=== PATIENT | female | born 1990 | race Caucasian/White ===

== ENCOUNTER 2016-02-28 15:40 | Emergency (ER) | payer OTHER ==
[2016-02-28 16:13] VITALS: RESP 18
[2016-02-28 16:26] LABS: COLOR YELLOW; LEUKOCYTE ESTERASE,URINE 3+ (NEGATIVE); NITRITE,URINE POSITIVE (NEGATIVE)
[2016-02-28 16:34] LABS: BACTERIA 1+ /hpf (NONE SEEN); RBC,URINE 15-25 /hpf (0-3); WBC,URINE 25-50 /hpf (0-3)
--- NOTE | 2016-02-28 16:56 | EDPHY ---
H & P Stated Complaint: Burning, frequent urination. Pain starting to radiate to right flank Time Seen by Provider: 02/28/16 16:12 HPI/ROS: CHIEF COMPLAINT: urinary frequency, urgency, dysuria HISTORY OF PRESENT ILLNESS: 25-year-old female presents emergency department reporting urinary frequency, urgency, dysuria and hematuria that started last night. Patient reports mild right-sided flank pain that she noticed this afternoon. She denies nausea, vomiting, no fevers. Patient reports she was treated for a urinary tract infection 4 months ago. She denies vaginal discharge. She reports there is no chance she is as she takes control regularly. She has no other complaints. REVIEW OF SYSTEMS: A comprehensive 10 point review of systems is otherwise negative aside from elements mentioned in the history of present illness. Source: Patient Exam Limitations: No limitations - Personal History LMP (Females 10-55): 8-14 Days Ago Current Tetanus/Diphtheria Vaccine: Yes Current Tetanus Diphtheria and Acellular Pertussis (TDAP): Yes - Medical/Surgical History Hx Asthma: No Hx Chronic Respiratory Disease: No Hx Diabetes: No Hx Cardiac Disease: No Hx Renal Disease: No Hx Cirrhosis: No Hx Alcoholism: No Other PMH: frequent UTI's - Social History Smoking Status: Never smoked - Physical Exam Exam: Physical Exam Gen: Alert and Oriented, NAD HEENT: PERRL, moist mucous membranes NECK: no meningismus CV: regular rate and regular rhythm PULM: CTAB, no wheezes ABDOMEN: soft, mild suprapubic tenderness to palpation, BS present BACK: No CVA tenderness NEURO: Neurologically grossly intact EXTREMITIES: normal appearing SKIN: no rash or break in skin on exposed skin PSYCH: answers questions appropriately. Constitutional: Initial Vital Signs Temperature (C) 36.9 C 02/28/16 16:02 Heart Rate 78 02/28/16 16:02 Respiratory Rate 18 02/28/16 16:02 Blood Pressure 112/81 H 02/28/16 16:02 O2 Sat (%) 99 02/28/16 16:02 O2 Delivery Mode Room Air Allergies/Adverse Reactions: cephalexin monohydrate [From Keflex] Allergy (Verified 02/28/16 16:01) Home Medications: Medication Instructions Recorded Nitrofurantoin Monohyd/M-Cryst 100 mg PO BID #12 capsule 02/28/16 [Macrobid 100 mg Capsule] Wellbutrin 100mg (*) 02/28/16 Medical Decision Making ED Course/Re-evaluation: 25-year-old nontoxic-appearing female presents with UTI symptoms that started yesterday. She is afebrile, no nausea or vomiting, mild right flank pain. Urinalysis shows positive nitrites, 25-50 WBCs, 15-25 RBCs, urine culture is pending. Urine test is negative. Differential Diagnosis: Diagnosis considered but not limited to urinary tract infection, pyelonephritis , STD, kidney stone. - Data Points Laboratory Results: 02/28/16 16:13 Urine Color YELLOW Urine Appearance HAZY Urine pH 6.0 (5.0-7.5) Ur Specific [place] 1.016 (1.002-1.030) Urine Protein NEGATIVE (NEGATIVE) Urine Ketones NEGATIVE (NEGATIVE) Urine Blood 1+ H (NEGATIVE) Urine Nitrate POSITIVE H (NEGATIVE) Urine Bilirubin NEGATIVE (NEGATIVE) Urine Urobilinogen NEGATIVE EU (0.2-1.0) Ur Leukocyte Esterase 3+ H (NEGATIVE) Urine RBC 15-25 H /hpf (0-3) Urine WBC 25-50 H /hpf (0-3) Ur Epithelial Cells TRACE /lpf (NONE-1+) Urine Bacteria 1+ H /hpf (NONE SEEN) Ur Culture Indicated? INDICATED H (NI) Urine Glucose NEGATIVE (NEGATIVE) Urine Test NEGATIVE Medications Given: Discontinued Medications Nitrofurantoin (Macrobid 100mg Prepack#2) 1 btl [facility] Stop: 02/28/16 17:03 Last Admin: 02/28/16 17:06 Dose: 1 btl Departure - Departure Disposition: Home, Routine, Self-Care Clinical Impression: Urinary tract infection Condition: Good Instructions: Urinary Tract Infection in Women (ED) Additional Instructions: Take your antibiotics as prescribed, return to the emergency department for worsening symptoms, vomiting, fevers. Follow up with your primary care doctor for symptoms that are not improving in the next 2 days. Drink plenty of fluids. Referrals: Janae aPtterson DO [Doctor of Osteopathy] - As per Instructions (Primary care doctor on-call) Prescriptions: Nitrofurantoin Monohyd/M-Cryst [Macrobid 100 mg Capsule] 100 mg PO BID #12 capsule
[2016-02-28] MEDS ORDERED: NITROFURANTOIN 100MG PREPACK#2 BTL TAKEHOME ONE (17:02)
[2016-02-28 17:17] VITALS: BP 132/89; PULSE 90; TEMP 98.1; O2SAT 98
== END 2016-02-28 17:17 | disposition home or self-care (01) ==
DX: N39.0 Urinary tract infection, site not specified (principal); B96.20 Unspecified Escherichia coli [E. coli] as the cause of diseases classified elsewhere